=== PATIENT | female | born 1950 | race Hispanic/Latino ===

== ENCOUNTER → 2022-06-23 | Outpatient (CLI) | payer MEDICARE | LOC: MAMMO 11:56 | PROVIDERS: ATTEND Internal Medicine | DX: Z12.31 Encounter for screening mammogram for malignant neoplasm of breast (principal); Z13.820 Encounter for screening for osteoporosis | CPT/HCPCS: 77067; 77080 ==

== ENCOUNTER 2025-06-16 18:25 | Emergency (ER) | payer MEDICARE ==
[~2025-06-16] VITALS: Ht 160 cm; Wt 61.2 kg
[2025-06-16 19:48] LABS: BASOPHILS % 0.5 % (0.0-1.0); EOSINOPHILS % 2.2 % (0.0-6.0); LYMPHOCYTES % 19.7 % (18.0-39.1); MONOCYTES % 8.6 % (4.4-11.3); NEUTROPHILS % 68.5 % (38.7-80.0); RED CELL DISTRIBUTION WIDTH 12.8 % (11.7-14.4)
[2025-06-16 19:58] LABS: LEUKOCYTE ESTERASE ,URINE SMALL (NEGATIVE); PROTEIN,URINE DIPSTICK NEGATIVE (NEGATIVE); URINE UROBILINOGEN 0.2 mg/dL (0.2 - 1)
[2025-06-16 20:03] LABS: EST GLOMERULAR FILTRATION RATE 46.0 ML/MIN (>=60)
[2025-06-16 20:05] LABS: EPITHELIAL CELLS,URINE FEW /LPF; WBC,URINE (MAN) 21-50 /HPF (0-5)
[2025-06-16] MEDS: SODIUM CHLORIDE 0.9% 1000ML 1,000 ML IV SCH (20:19)
[2025-06-16] MEDS: BELLADONNA ALK/PHENOBARBITAL 5 ML UDC PO STA (20:19)
[2025-06-16] MEDS: MAGNESIUM/ALUMINUM/SIMETHICONE 30 ML UDC PO ONE (20:19)
[2025-06-16] MEDS: LIDOCAINE VISC 2% SOLN 15 ML UDC PO ONE (20:19)
[2025-06-16] MEDS ORDERED: IOPAMIDOL 370 MG/ML 100 ML INFUS..BTL INJ ONE (21:12)
[2025-06-16 23:00] VITALS: PULSE 90; RESP 17; TEMP 98.4; O2SAT 99
[2025-06-16] MEDS ORDERED: ONDANSETRON ODT4 MG PO (23:08)
[2025-06-16] MEDS ORDERED: OMEPRAZOLE40 MG PO (23:08)
== END 2025-06-16 23:15 | disposition home or self-care (01) ==
LOC: ER 19:49
DX: R10.9 Unspecified abdominal pain (principal); K29.70 Gastritis, unspecified, without bleeding; K57.90 Diverticulosis of intestine, part unspecified, without perforation or abscess without bleeding
CPT/HCPCS: 36415; 74177; 80053; 81001; 85025; 99284; J2470; J7030; Q9967

== ENCOUNTER → 2025-06-25 | Day surgery (SDC) | payer MEDICARE ==
[2025-06-24 11:53] LABS: BASOPHILS % 0.5 % (0.0-1.0); EOSINOPHILS % 1.4 % (0.0-6.0); LYMPHOCYTES % 18.9 % (18.0-39.1); MONOCYTES % 7.8 % (4.4-11.3); NEUTROPHILS % 71.1 % (38.7-80.0); RED CELL DISTRIBUTION WIDTH 12.9 % (11.7-14.4)
[~2025-06-25] MED LIST: COQ-10100 MG PO; FOLIC ACID0.8 MG PO; LIDOCAINE HCL 2% LOCAL INJ 5 ML SDV VIAL INJ ONE; OLMESARTAN-HCT1 EAC1 PO; OMEPRAZOLE40 MG PO; ONDANSETRON ODT4 MG PO; PROPOFOL IV EMULSION 10 MG/ML 20 ML VIAL ONE; SUCRALFATE1 GM PO; VITAMIN B121000 MCG PO
[2025-06-25] MEDS: LACTATED RINGER'S 1,000 ML ONE (13:31)
[2025-06-25 16:12] VITALS: TEMP 98.9
[2025-06-25 16:40] VITALS: BP 148/79; PULSE 76; RESP 16; O2SAT 97
[2025-06-28 16:12] LABS: ENDOMYSIAL ANTIBODIES, IGA Negative (Negative)
[2025-06-28 16:55] LABS: TISSUE TRANSGLUTAMINASE IGA AB <2 U/mL (0-3)
== END | disposition home or self-care (01) ==
LOC: OR 12:48
PROVIDERS: ATTEND Internal Medicine Gastroenterology
DX: K31.89 Other diseases of stomach and duodenum (principal); K44.9 Diaphragmatic hernia without obstruction or gangrene; K31.7 Polyp of stomach and duodenum; K21.00 Gastro-esophageal reflux disease with esophagitis, without bleeding; I10 Essential (primary) hypertension; E78.00 Pure hypercholesterolemia, unspecified; Z88.5 Allergy status to narcotic agent; Z90.49 Acquired absence of other specified parts of digestive tract; Z79.899 Other long term (current) drug therapy; Z01.810 Encounter for preprocedural cardiovascular examination; Z01.812 Encounter for preprocedural laboratory examination
CPT/HCPCS: 36415; 43239; 43251; 82784; 83516; 85025; 86256; 93005; J2003; J2470; J2704; J7121